=== PATIENT | male | born 1950 | race Caucasian/White ===

== ENCOUNTER → 2018-03-02 11:36 | Emergency (ER) | payer MEDICARE ==
[~2018-03-02 11:36] MED LIST: HYDROcodone/ACETAMIN 5-325 MG* 1 TAB PO ONE
--- NOTE | 2018-03-02 12:40 | RAD ---
HISTORY: fall COMPARISONS: None VIEWS: 3 , Frontal view of the pelvis with frontal and frog-leg views of the right hip FINDINGS: BONE DENSITY: Normal. BONES: There is no displaced fracture. JOINTS: There is mild osteoarthritis of the right hip with moderate osteoarthritis of the left hip. ALIGNMENT: There is no dislocation. SOFT TISSUES: Unremarkable. OTHER FINDINGS: Degenerative changes are noted of the spine.. IMPRESSION: OSTEOARTHRITIS. NO RADIOGRAPHIC EVIDENCE FOR HIP FRACTURE. X-RAYS MAY BE NEGATIVE WITH NONDISPLACED HIP FRACTURE, IF THERE IS PERSISTENT CLINICAL CONCERN, RECOMMEND CONSIDERATION OF MRI. IN THE SETTING OF CONTRAINDICATION TO MRI OR LIMITATION IN EMERGENT ACCESS TO MRI, CT WOULD BE SUGGESTED. .
--- NOTE | 2018-03-02 14:18 | RAD ---
HISTORY: fall, pain, right hip pain COMPARISONS: Plain film dated March 02, 2018 TECHNIQUE: Multiple contiguous axial CT images are obtained of the pelvis , with coronal and sagittal multiplanar reconstructions, without intravenous contrast administration. FINDINGS: BONE DENSITY: There is diffuse osteopenia. BONES: There is no displaced fracture. JOINTS: There is moderate osteoarthritis of the right hip with advanced osteoarthritis of the left hip. There is mild osteoarthritis of the SI joints. MUSCULATURE: Unremarkable ALIGNMENT: There is no dislocation. SOFT TISSUES: Unremarkable. OTHER FINDINGS: There is degenerative disc disease and osteoarthritis of the lower lumbar spine. IMPRESSION: 1. OSTEOPENIA. 2. OSTEOARTHRITIS. 3. NO ACUTE OSSEOUS INJURY TO THE VISUALIZED PORTION OF THE PELVIS. IF SYMPTOMS PERSIST, RECOMMEND REPEAT IMAGING
[2018-03-02 15:03] VITALS: BP 137/74
--- NOTE | 2018-03-02 18:09 | ED ---
Lower Extremity - HPI Summary HPI Summary: Pt. is a 67 y.o male who presents to the ER for right hip pain x 4 days. Pt. states he has chronic right knee pain after 2 surgeries and it occasionally makes him fall. Pt. states four days ago his knee gave out and he slipped in the shower injuring his right knee. No other injuries were sustained. Pt. states hip pain has persisted and he is having trouble walking secondary to pain. Denies back or new numbness/tingling/weakness in legs. He is rx lortab by PCP. Symptoms are mild in severity. Walking makes sxs worse. Nothing makes sx better. - History of Current Complaint Chief Complaint: EDExtremityLower Stated Complaint: RT SIDE HIP INJURY Time Seen by Provider: 03/02/18 12:08 Hx Obtained From: Patient Pain Intensity: 3 Pain Scale Used: 0-10 Numeric - Allergies/Home Medications Allergies/Adverse Reactions: Allergies Allergy/AdvReac Type Severity Reaction Status Date / Time NSAIDS (Non-Steroidal Allergy GI Upset Verified 03/02/18 11:48 Anti-Inflamma PMH/Surg Hx/FS Hx/Imm Hx Previously Healthy: Yes Endocrine/Hematology History: Denies: Hx Anticoagulant Therapy GI History: Reports: Hx Gastroesophageal Reflux Disease Denies: Hx Cirrhosis, Hx Crohn's Disease, Hx Diverticulosis, Hx Gall Bladder Disease, Hx Gastrointestinal Bleed, Hx Hiatal Hernia, Hx Irritable Bowel, Hx Jaundice, Hx Obstructive Bowel, Hx Ileostomy, Hx Pyloric Stenosis, Hx Ulcer, Other GI Disorders Musculoskeletal History: Reports: Hx Arthritis - Right knee, Hx Orthopedic Injury - Bilateral shoulders Sensory History: Reports: Hx Contacts or Glasses - Reading Denies: Hx Cataracts, Hx Eye Prosthesis, Hx Deafness, Hx Hearing Aid, Hx Hearing Problem Opthamlomology History: Reports: Hx Contacts or Glasses - Reading Denies: Hx Cataracts, Hx Eye Prosthesis Psychiatric History: Reports: Hx Depression, Hx Substance Abuse Denies: Hx Anxiety, Hx Attention Deficit Hyperactivity Disorder, Hx Eating Disorder, Hx Panic Disorder, Hx Post Traumatic Stress Disorder, Hx Inpatient Treatment, Hx Community Mental Health Tx, Hx Schizophrenia, Hx Bipolar Disorder , Hx Suicide Attempt, Hx of Violent Episodes Against Others, Other Psychiatric Issues/Disorders - Surgical History Surgery Procedure, Year, and Place: Right knee replacement, bilateral rotator cuff tears Infectious Disease History: No Infectious Disease History: Denies: Hx Clostridium Difficile, Hx Hepatitis, Hx Human Immunodeficiency Virus (HIV), Hx of Known/Suspected MRSA, Hx Shingles, Hx Tuberculosis, Hx Known/ Suspected VRE, Hx Known/Suspected VRSA, History Other Infectious Disease, Traveled Outside the [place] in Last 30 Days - Family History Known Family History: Positive: Other - noncontributory - Social History Occupation: Retired Lives: With Family Alcohol Use: Daily Alcohol Amount: 6-8 Substance Use Type: Reports: None Substance Use Comment - Amount & Last Used: History of cocaine use. Smoking Status (MU): Light Every Day Tobacco Smoker Type: Cigarettes Review of Systems Positive: Other - right hip pain Skin: Negative Neurological: Negative All Other Systems Reviewed And Are Negative: Yes Physical Exam Triage Information Reviewed: Yes Vital Signs On Initial Exam: Initial Vitals Temp Pulse Resp BP Pulse Ox 98.2 F 74 17 127/67 97 03/02/18 11:44 03/02/18 11:44 03/02/18 11:44 03/02/18 11:44 03/02/18 11:44 Vital Signs Reviewed: Yes Appearance: Positive: Thin - Pt. lying on bed, appears uncomfortable but nontoxic. present. Skin: Positive: Warm, Dry Head/Face: Positive: Normal Head/Face Inspection Eyes: Positive: Normal, EOMI Neck: Positive: Supple Musculoskeletal: Positive: Other - Right leg is neurovascularly intact. Pain over right illiac crest. Mild pain with rotation of right hip. No leg edema, erythema, calf pain. Neurological: Positive: Normal, CN Intact II-III Psychiatric: Positive: Affect/Mood Appropriate Diagnostics - Vital Signs Vital Signs Temp Pulse Resp BP Pulse Ox 03/02/18 15:02 98.3 F 81 16 137/74 99 03/02/18 11:44 98.2 F 74 17 127/67 97 - Laboratory Lab Statement: Any lab studies that have been ordered have been reviewed, and results considered in the medical decision making process. Lower Extremity Course/Dx - Course Course Of Treatment: Presenting with right flank pain after fall 4 days ago. He was given a dose of Lortab for pain. X-rays show arthritic changes without definitive fracture, reading per radiology. Results were discussed with patient. Patient states that he has really been unable to bear weight on his right leg secondary to headache pain has been using a walker at home. Given recent fall and inability to bear weight CT scan was ordered to rule out occult fracture. CT scan shows arthritic changes without acute fracture, reading per radiology. Results discussed with patient. We'll have him follow-up with his orthopedic surgeon. Advised to call his family doctor today for refill of his chronic pain medications. To return to the ER if symptoms change or worsen. Patient understands and agrees with plan. - Diagnoses Differential Diagnosis/HQI/PQRI: Positive: Arthritis, Contusion, Fracture ( Closed), Sprain, Strain Provider Diagnoses: Hip sprain Discharge - Sign-Out/Discharge Documenting (check all that apply): Patient Departure - Discharge Plan Condition: Good Disposition: HOME Patient Education Materials: Hip Pain (ED) Referrals: Melo Bustillos MD [Primary Care Provider] - Additional Instructions: Schedule a follow up appointment with your orthopedic doctor Return to ER if symptoms change or worsen - Billing Disposition and Condition Condition: GOOD Disposition: Home
== END | disposition home or self-care (01) ==
LOC: ED 11:36
DX: S73.101A Unspecified sprain of right hip, initial encounter (principal); M25.561 Pain in right knee; G89.29 Other chronic pain; K21.9 Gastro-esophageal reflux disease without esophagitis; F17.210 Nicotine dependence, cigarettes, uncomplicated; W18.2XXA Fall in (into) shower or empty bathtub, initial encounter; Y92.9 Unspecified place or not applicable
CPT/HCPCS: 72192; 99282

== ENCOUNTER 2019-04-11 19:06 | Emergency (ER) | payer MEDICARE ==
[~2019-04-11 19:06] MED LIST changes: +EPINEPHrine SYR 0.1MG/ML* SYRINGE ONE; -HYDROcodone/ACETAMIN 5-325 MG* 1 TAB PO ONE; +Naloxone Nasal Spray* 4 MG/0.1 ML NASAL.SPR INTRANASAL ONE; +Sodium Bicarbonate 8.4%* 50 ML SYRINGE ONE
--- NOTE | 2019-04-11 19:22 | ED ---
Cardiac Resuscitation - HPI Summary HPI Summary: Patient is a 68 y/o M presenting to the ED via EMS for a chief complaint of cardiac arrest. Patient is unconscious and unresponsive. Per EMS, ambulatory services were called at 18:07 and on the scene, patient was in asystole and given 4 rounds of epinephrine and calcium. At that time, patient's HR was 67 BPM and was intubated. Patient has blood from the nares and mouth. The last epinephrine was administered 5 minutes CARDIOVASCULAR SURGICAL TECH at [facility]. Patient was given CPR by EMS due to having no shockable rhythm. No narcan was administered by EMS. Patient has a PMHx of COPD and hepatitis C. Patient previously took oxycodone for pain. Several pulse checks assessed in the room showed no pulse. Continuous CPR was given to the patient on arrival to [facility]. Patient's and son later arrived to [facility]. - History of Current Complaint Stated Complaint: ABC ALERT PER EMS Hx Obtained From: Family/Engineering Mgr - and son, EMS Hx From Patient Unobtainable Due To: Extremis Onset/Duration: Minutes/Hours: - 16:07 by EMS unresponsive Arrest Witnessed: Yes Down-time Before Basic Life Support Initiated: Down-time before BLS initiated: - Minimal Down-time Before Advanced Life Support Initiated: Down-time before ALS initiated : - Unknown Was AED Placed on Patient: Yes AED Placed on Patient By: EMS Did AED Recommend Defibrillation: No Was Defibrillating Shock Administered: No - Allergies/Home Medications Allergies/Adverse Reactions: Allergies Allergy/AdvReac Type Severity Reaction Status Date / Time NSAIDS (Non-Steroidal Allergy GI Upset Verified 03/02/18 11:48 Anti-Inflamma Home Medications: Home Medications Doxepin (NF) 25 - 50 mg PO BEDTIME 04/11/19 [History Confirmed 04/11/19] Zolpidem TAB* [Ambien TAB*] 10 mg PO BEDTIME PRN 04/11/19 [History Confirmed ] oxyCODONE TAB* [Roxycodone TAB 5 mg*] 10 mg PO .Q6-8H PRN MDD 4 04/11/19 [ History Confirmed 04/11/19] - Past Medical History Past Medical History: COPD, Other: - Hepatitis C - Family History Family History: Unobtainable Due to Extremis - Social History Social History: Unobtainable Due to Extremis - Review of Systems Review of Systems: Unobtainable Due to Extremis Physical Examination - Summary Physical Exam Summary: Constitutional: Combitube in place with blood in the oropharynx. CPR in progress Skin: Warm, Dry HENT: Normocephalic; Atraumatic Eyes: Conjunctiva normal. Pupils 3 mm and equal Neck: Musculoskeletal ROM normal neck. (-) JVD, (-) Stridor, (-) Tracheal deviation Cardio: CPR in progress with PEA on the monitor. Pulmonary/Chest wall: Patient easily bagged via Combitube with bilateral breath sounds Abd: No distention Musculoskeletal: (-) Edema Neuro: No spontaneous movement - Physical Examination Triage Information Reviewed: Yes Completion Of Physical Exam Limited Due To: Extremis Resuscitation Termination Time: 19:18 Resuscitation: Unsuccessful Procedures - Sedation Patient Received Moderate/Deep Sedation with Procedure: No Re-Evaluation - Re-Evaluation First Eval Re-Evaluation Time: 19:25 Change: Unchanged Comment: AT 19:25, CONTACT CENTER REPRESENTATIVE WILL NOT DO AN AUTOPSY. Cardiac Resus. Course/Dx - Course Course Of Treatment: Patient was brought in via EMS in cardiac arrest. Patient had a witnessed arrest at home with bystander CPR performed by his . Upon arrival, patient was in asystole with EMS. Patient sees multiple rounds of epinephrine with eventual PEA arrest and then a ventricular tachycardia. Patient had pulses at that time, was given amiodarone and patient went back into PEA arrest. Upon arrival here, patient had a Combitube in place and was easily being bagged. Patient had bilateral breath sounds with no crepitus in his chest wall. Patient had no signs of trauma. Patient was placed on our monitors and was found to be in asystole. Patient received multiple rounds of epinephrine. Patient does take opiates at home so Narcan was given with no response. Patient was also given a dose of bicarbonate with no response. CPR was performed with at bedside. Patient had no cardiac activity on bedside ultrasound. Patient's time of was 1917. The medical territory manager was called and they recommended no autopsy which is what family wanted. - Diagnoses Provider Diagnoses: Cardiac arrest, Respiratory failure During the Visit The Following Alert/Code Occurred: ABC Alert - ABC ALERT ETA IN 6 MINUTES AT 15:56. FIRST EPINEPHRINE AT 19:09. SECOND EPINEPHRINE AT 19:16. TIME OF : 19:18. Discharge ED - Sign-Out/Discharge Documenting (check all that apply): Patient Departure - - Discharge Plan Condition: Disposition: Referrals: Melo Bustillos MD [Primary Care Provider] - - Billing Disposition and Condition Condition: Disposition: - Attestation Statements Document Initiated by Scribe: Yes Documenting Scribe: Amanda Chaves Provider For Whom Scribe is Documenting (Include Credential): Alessio Lind MD Scribe Attestation: Amanda Taveras, scribed for Alessio Lind MD on 04/11/19 at 2137. Scribe Documentation Reviewed: Yes Provider Attestation: The documentation as recorded by the Amanda coleman accurately reflects the service I personally performed and the decisions made by Alessio santamaria MD Status of Scribe Document: Viewed
[2019-04-11 19:29] VITALS: BP 0/0
--- OUTSIDE RECORDS SUMMARY | 2019-04-11 19:30 | XMS REPORT | Continuity of Care Document ---
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 [phone] Medicine Problems Description No Information Available Social History Type Date Description Comments Sex Unknown ETOH Use Rarely consumes alcohol Tobacco Use Start: Unknown End: Unknown Patient is a former smoker Recreational Drug Use Denies Drug Use Smoking Status Reviewed: 02/22/19 Patient is a former smoker Allergies, Adverse Reactions, Alerts Active Allergies Reaction Severity Comments Date NSAIDS GI upset 06/12/2018 Medications Active Medications SIG Qnty Indications Ordering Provider Date Oxycodone HCL si by mouth 100tabs Benoit Han DO, 06/12/2018 10mg every 6 to 8 MPH Tablets hours as directed chronic pain patient Vitamin C 1 by mouth every Unknown 1000mg day Tablets Medical Marijuana Vireo Red Oil Unknown CBD/Cap Ambien si by mouth Unknown 10mg Tablets every night at bedtime as directed Allergy 1 by mouth as Unknown 25mg Capsules needed Immunizations Description No Information Available Vital Signs Date Vital Result Comment 02/22/2019 3:37pm BP Systolic 136 mmHg BP Diastolic 86 mmHg Heart Rate 88 /min Respiratory Rate 20 /min Height 67 inches 5'7" Weight 141.00 lb Pain Level 7 Pain at this time. Pain Level With Medicine 6 on average with meds Pain Level Without Medicine 9 without meds BMI (Body Mass Index) 22.1 kg/m2 01/23/2019 2:54pm BP Systolic 128 mmHg BP Diastolic 84 mmHg Heart Rate 88 /min Respiratory Rate 20 /min Height 67 inches 5'7" Weight 144.00 lb Pain Level 5 Pain at this time. Pain Level With Medicine 5 on average with meds Pain Level Without Medicine 9 without meds BMI (Body Mass Index) 22.6 kg/m2 Results Description No Information Available Procedures Date Code Description Status 09/21/2018 23678 Omt 3-4 Body Regions Completed Medical Devices Description No Information Available Encounters Type Date Location Provider Dx Diagnosis Office Visit 01/23/2019 Main Office as Of Benoit Han DO G89.29 Other chronic pain 2:45p 06/23/13 MPH M54.2 Cervicalgia Z79.891 skilled nursing (current) use of opiate analgesic Office Visit 12/26/2018 3:00p Main Office as Benoit Han G89.29 Other chronic Of 06/23/13 DO, MPH pain M54.2 Cervicalgia Z79.891 skilled nursing (current) use of opiate analgesic Office Visit 12/22/2018 1:45p Main Office as Benoit Han G89.29 Other chronic Of 06/23/13 DO, MPH pain M54.2 Cervicalgia M54.5 Low back pain M54.6 Pain in thoracic spine Office Visit 11/22/2018 11:15a Main Office as Benoit Han G89.29 Other chronic Of 06/23/13 DO, MPH pain M54.2 Cervicalgia M54.5 Low back pain M54.6 Pain in thoracic spine Z79.891 skilled nursing (current) use of opiate analgesic Office Visit 10/24/2018 11:00a Main Office as Benoit Han G89.29 Other chronic Of 06/23/13 DO, MPH pain M54.2 Cervicalgia M54.6 Pain in thoracic spine M54.5 Low back pain Z79.891 skilled nursing (current) use of opiate analgesic Office Visit 09/21/2018 11:30a Main Office as Benoit Han G89.29 Other chronic Of 06/23/13 DO, MPH pain M54.2 Cervicalgia M99.01 Segmental and somatic dysfunction of cervical region M54.6 Pain in thoracic spine M99.02 Segmental and somatic dysfunction of thoracic region M54.5 Low back pain M99.03 Segmental and somatic dysfunction of lumbar region M25.561 Pain in right knee 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 Assessments Date Code Description Provider 02/22/2019 G89.29 Other chronic pain Han, Benoit, DO, MPH 02/22/2019 M54.2 Cervicalgia Han, Benoit, DO, MPH 02/22/2019 M54.5 Low back pain Han, Benoit, DO, MPH 02/22/2019 Z71.89 Other specified counseling Han, Benoit, DO, MPH 02/22/2019 Z79.891 skilled nursing (current) use of opiate analgesic Han, Benoit , DO, MPH 01/23/2019 G89.29 Other chronic pain Han, Benoit, DO, MPH 01/23/2019 M54.2 Cervicalgia Han, Benoit, DO, MPH 01/23/2019 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 Han, Benoit , DO, MPH 12/26/2018 G89.29 Other chronic pain Han, Benoit, DO, MPH 12/26/2018 M54.2 Cervicalgia Han, Benoit, DO, MPH 12/26/2018 Z79.891 skilled nursing (current) use of opiate analgesic Han, Benoit , DO, MPH 12/22/2018 G89.29 Other chronic pain Han, Benoit, DO, MPH 12/22/2018 M54.2 Cervicalgia Han, Benoit, DO, MPH 12/22/2018 M54.5 Low back pain Han, Benoit, DO, MPH 12/22/2018 M54.6 Pain in thoracic spine Han, Benoit, DO, MPH 11/22/2018 G89.29 Other chronic pain Han, Benoit, DO, MPH 11/22/2018 M54.2 Cervicalgia Han, Benoit, DO, MPH 11/22/2018 M54.5 Low back pain Han, Benoit, DO, MPH 11/22/2018 M54.6 Pain in thoracic spine Han, Benoit, DO, MPH 11/22/2018 Z79.891 skilled nursing (current) use of opiate analgesic Han, Benoit , DO, MPH 10/24/2018 G89.29 Other chronic pain Han, Benoit, DO, MPH 10/24/2018 M54.2 Cervicalgia Benoit Han DO, MPH 10/24/2018 M54.6 Pain in thoracic spine Benoit Han DO, MPH 10/24/2018 M54.5 Low back pain Benoit Han DO, MPH 10/24/2018 Z79.891 skilled nursing (current) use of opiate analgesic Benoit Han DO, MPH 09/21/2018 G89.29 Other chronic pain Benoit Han DO, MPH 09/21/2018 M54.2 Cervicalgia Benoit Han DO, MPH 09/21/2018 M99.01 Segmental and somatic dysfunction of Benoit Han DO, MPH cervical region 09/21/2018 M54.6 Pain in thoracic spine Benoit Han DO, MPH 09/21/2018 M99.02 Segmental and somatic dysfunction of Benoit Han DO, MPH thoracic region 09/21/2018 M54.5 Low back pain Benoit Han DO, MPH 09/21/2018 M99.03 Segmental and somatic dysfunction of lumbar Benoit Han DO, MPH region 09/21/2018 M25.561 Pain in right knee Benoti Han DO, MPH 09/21/2018 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 Symptoms and complaints discussed and reviewed today. No significant changes in physical findings. Continue current medical pain management.M54.2 CervicalgiaComments:Chronic. Symptoms and complaints discussed and reviewed today. No significant changes in physical findings. Continue current medical pain management.M54.5 Low back painComments:Chronic. Symptoms and complaints discussed and reviewed today.No changes in physical findings. Patient is stable and comfortable when current medical therapy is rendered.Z71.89 Other specified counselingComments:CAGE reviewed with patient. Counseled not to drive or use opioids while drinking. The patient clearly understands and agrees. No intervention necessary at this time. Will continue to monitor ETOH in UDT's. He denies being a diabetic. He states that he may have had a few beers a couple days prior to coming in for his appointment but he does not remember. He has a faint odor of alcohol but nothing that suggests that he is drunk at the appointment today. Phone conversation reviewed with patient today in the room. Conversation reviewed about him going to [facility] about his last UDT. The patient's alcohol in his UDT was above 100,000 ng/mL and 40,000 ng/ml. He continues to deny drinking anything. Patient's primary care notified of the UDT as well. [facility] called and spoke to Ailyn kumar [place] (Dr. Bustillos's office). She is requesting that today' s note and the UDT be faxed to their office for review and to start the referral process to the [facility]. 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 A urine drug test (UDT) was ordered for this patient and collected on site today. Creatinine has been ordered as well for specimen validity, not for kidney function. Preliminary UDT results are not final and should not be used to determine patient care or plan of treatment. Initially a qualitative immunoassay screen will be done. Any inconsistent or positive findings will be further tested with a more comprehensive quantitative confirmation LCMS study. It is part of the treatment process of prescribing controlled substances and is considered standard of care.AllComments:Continue current medical pain management; injection therapy, osteopathic manipulation, PT / modalities, and consults as needed to manage chronic pain.Non - opioid pain management discussed and optionsdiscussed.Side effects discussed; anticipatory guidance given. Patient clearly understand and agree with all medical treatments and suggestions. All medicines prescribed are adequate and appropriate for this patient's complaint of pain, medical history, physical, and personal goals.Goals of Treatment are to provide adequate and appropriate multidisciplinary medical pain management to increase/ maintain patient's quality of life and functionality while maintaining satisfactory side effect profile andminimizing middle or intermediate school principal end-organ damage. Importance of regular nutrition throughout the day discussed.Activity as toleratedContinue with PCP Functional Status Description No Information Available Mental Status Description No Information Available Referrals Description No Information Available
--- OUTSIDE RECORDS SUMMARY | 2019-04-11 19:30 | XMS REPORT | Continuity of Care Document ---
:1950 External Reference #:[id number] Author Name Benoit Han DO, MPH Address [address] [place] [address], [address] [place] [address] Care Team Providers Name Role Phone Melo Bustillos MD - Internal Care Team Information Legislators [phone] Medicine Problems Description No Information Available Social History Type Date Description Comments Sex Unknown ETOH Use Rarely consumes alcohol Tobacco Use Start: Unknown End: Unknown Patient is a former smoker Recreational Drug Use Denies Drug Use Smoking Status Reviewed: 03/26/19 Patient is a former smoker Allergies, Adverse [...] Available Vital Signs Date Vital Result Comment 03/26/2019 1:35pm BP Systolic 122 mmHg BP Diastolic 74 mmHg Heart Rate 76 /min Respiratory Rate 20 /min Height 67 inches 5'7" Weight 135.00 lb Pain Level 9 Pain at this time. Pain Level With Medicine 8 on average with meds Pain Level Without Medicine 9 without meds BMI (Body Mass Index) 21.1 kg/m2 03/06/2019 3:49pm BP Systolic 130 mmHg BP Diastolic 82 mmHg Heart Rate 84 /min Respiratory Rate 20 /min Height 67 inches 5'7" Weight 136.00 lb Pain Level 6 Pain at this time. Pain Level With Medicine 6 on average with meds Pain Level Without Medicine 9 without meds BMI (Body Mass Index) 21.3 kg/m2 Results Description No Information Available Procedures Description No Information Available Medical Devices Description No Information Available Encounters Type Date Location Provider Dx Diagnosis Office Visit 03/06/2019 Main Office as Of Benoit Han DO, G89.29 Other chronic pain 3:30p 06/23/13 MPH M54.5 Low back pain M54.2 Cervicalgia M25.561 Pain in right knee Z79.891 [facility] (current) use of opiate analgesic Office Visit 02/22/2019 2:30p Main Office as Benoit Han G89.29 Other chronic Of 06/23/13 DO, MPH pain M54.2 Cervicalgia M54.5 Low back pain Z71.89 Other specified counseling Z79.891 [employer] (current) use of opiate analgesic Office Visit 01/23/2019 2:45p Main Office as Benoit Han G89.29 Other chronic Of 06/23/13 DO, MPH pain M54.2 Cervicalgia Z79.891 [facility] [employer] (current) use of opiate analgesic Office Visit 12/26/2018 3:00p Main Office as Benoit Han G89.29 Other chronic Of 06/23/13 DO, MPH pain M54.2 Cervicalgia Z79.891 [facility] [employer] (current) use of opiate analgesic Office Visit 12/22/2018 1:45p Main Office as Benoit Han G89.29 Other chronic Of 06/23/13 DO, MPH pain M54.2 Cervicalgia M54.5 Low back pain M54.6 Pain in thoracic spine Office Visit 11/22/2018 11:15a Main Office as Benoit Han G89.29 Other chronic Of 06/23/13 DO, MPH pain M54.2 Cervicalgia M54.5 Low back pain M54.6 Pain in thoracic spine Z79.891 [facility] (current) use of opiate analgesic Office Visit 10/24/2018 11:00a Main Office as Benoit Han G89.29 Other chronic Of 06/23/13 DO, MPH pain M54.2 Cervicalgia M54.6 Pain in thoracic spine M54.5 Low back pain Z79.891 [employer] (current) use of opiate analgesic Assessments Date Code Description Provider 03/26/2019 G89.29 Other chronic pain Han, Benoit, DO, MPH 03/26/2019 M54.5 Low back pain Han, Benoit, DO, MPH 03/26/2019 M54.2 Cervicalgia Han, Benoit, DO, MPH 03/26/2019 M25.561 Pain in right knee Han, Benoit, DO, MPH 03/26/2019 Z79.891 [employer] [employer] (current) use of opiate analgesic Han, Benoit , DO, MPH 03/06/2019 G89.29 Other chronic pain Han, Benoit, DO, MPH 03/06/2019 M54.5 Low back pain Han, Benoit, DO, MPH 03/06/2019 M54.2 Cervicalgia Han, Benoit, DO, MPH 03/06/2019 M25.561 Pain in right knee Han, Benoit, DO, MPH 03/06/2019 Z79.891 [facility] (current) use of opiate analgesic Han, Benoit , DO, MPH 02/22/2019 G89.29 Other chronic pain Han, Benoit, DO, MPH 02/22/2019 M54.2 Cervicalgia Han, Benoit, DO, MPH 02/22/2019 M54.5 Low back pain Han, Benoit, DO, MPH 02/22/2019 Z71.89 Other specified counseling Han, Benoit, DO, MPH 02/22/2019 Z79.891 [facility] (current) use of opiate analgesic Han, Benoit , DO, MPH 01/23/2019 G89.29 Other chronic pain Han, Benoit, DO, MPH 01/23/2019 M54.2 Cervicalgia Han, Benoit, DO, MPH 01/23/2019 Z79.891 [facility] [employer] (current) use of opiate analgesic Han, Benoit , DO, MPH 12/26/2018 G89.29 Other chronic pain Han, Benoit, DO, MPH 12/26/2018 M54.2 Cervicalgia Han, Benoit, DO, MPH 12/26/2018 Z79.891 [employer] [employer] (current) use of opiate analgesic HanRadha morenoph DO, MPH 12/22/2018 G89.29 Other chronic pain HanBenoit moreno DO, MPH 12/22/2018 M54.2 Cervicalgia Han, Benoit DO, MPH 12/22/2018 M54.5 Low back pain HanBenoit moreno DO, MPH 12/22/2018 M54.6 Pain in thoracic spine HanBenoit moreno DO, MPH 11/22/2018 G89.29 Other chronic pain Han, Benoit DO, MPH 11/22/2018 M54.2 Cervicalgia Han, Benoit DO, MPH 11/22/2018 M54.5 Low back pain HanBenoit moreno DO, MPH 11/22/2018 M54.6 Pain in thoracic spine HanBenoit moreno DO, MPH 11/22/2018 Z79.891 [employer] [employer] (current) use of opiate analgesic Benoit Han DO, MPH 10/24/2018 G89.29 Other chronic pain HanBenoit moreno DO, MPH 10/24/2018 M54.2 Cervicalgia HanBenoit moreno DO, MPH 10/24/2018 M54.6 Pain in thoracic spine HanBenoit moreno DO, MPH 10/24/2018 M54.5 Low back pain HanBenoit moreno DO, MPH 10/24/2018 Z79.891 [facility] (current) use of opiate analgesic Benoit Han DO, MPH Plan of Treatment Future Appointment(s):04/24/2019 3:15 pm - Benoit Han DO, MPH at Main Office as Of 06/23/1410 - Benoit Han DO, MPHG89.29 Other chronic painComments:Chronic. Symptoms and complaints discussed and reviewed today. No significant changes in physical findings. Continue current medical pain management.M54.5 Low back painComments:Chronic. Symptoms and complaints discussed and reviewed today.No changes in physical findings. Patient is stable and comfortable when current medical therapy is rendered.M54.2 CervicalgiaComments:Chronic. Symptoms and complaints discussed and reviewed today. No significant changes in physical findings. Continue current medical pain management.M25.561 Pain in right kneeComments:Chronic.Symptoms and complaints discussed and reviewed today. No significant changes in physical findings. Continue current medical pain management.Z79.891 [employer] (current) use of opiate analgesicNew Labs:Urine Drug Screen, Ordered: 03/26/19Comments: Urine drug screen sample taken today to monitor opiate use and to monitor use of illicit substances.Will discuss results at next appointment.The following tests were ordered:6 AM, AMPH, ROSALBA, YUMI, BUP, CARIS, COCM, ETG, FENT, MCSHSG, OPI, OXY, PCP, TAPEN, XTSY, ZOLP. A urine drug test (UDT) was ordered for this patient and collected on site today. Creatinine has been ordered as well for specimen validity, not for kidney function. Preliminary UDT results are not final and should not be used to determine patient care or plan of treatment. Initially a qualitative immunoassay screen will bedone. Any inconsistent or positive findings will be [...] while maintaining satisfactory side effect profile andminimizing manager terminal end-organ damage. Importance of regular nutrition throughout the day discussed.Activity as toleratedContinue with PCP Functional Status Description No Information Available Mental Status Description No Information Available Referrals Description No Information Available
--- OUTSIDE RECORDS SUMMARY | 2019-04-11 19:30 | XMS REPORT | Summary of Care ---
:1950 Author Organization [facility] Address [address] [facility] [place] [address] Care Team Providers Name Role Phone Melo Bustillos Primary Care Provider Reason for Referral Specialty Consult (Routine) Status Reason Specialty Diagnoses / Referred By Referred To Procedures Contact Contact Authorized Diagnoses Alcohol abuse, episodic drinking behavior Khushi Fox FNP [address] [place] [address] Reason for Visit Reason Comments Medication Check montly FU, having trouble sleeping even w/meds and when he does, he wakes up early. Traveling on a plane to [facility] in [place] and needs medication for clostrofobia Encounter Details Date Type Department Care Team Description 03/22/2019 Office Visit [facility] Khushi Fox, Anxiety state ( Primary Dx); Practice [facility] [facility] Alcohol abuse, episodic drinking behavior; [address] [facility] Chronic hepatitis C without hepatic coma (HCC) [place] [address] [place] [address] [phone] Allergies Active Allergy Reactions Severity Noted Date Comments Nsaids GI Reaction Medium 07/06/2007 Gastro-intestinal upset documented as of this encounter (statuses as of 03/22/2019) Medications Medication Sig Dispensed Refills Start Date End Date Status daily vitamin Oral Tab Take 1 Tab by 0 Active mouth DAILY. Cholecalciferol (VITAMIN Take 1 Cap by 30 Cap 5 01/08/2011 Active D) 1000 UNIT Oral mouth DAILY. CapIndications: Routine general medical examination at a health care facility OXYcodone-acetaminophen Take 1 Tab by 0 Active discharge (PERCOCET) mouth EVERY SIX 10-325 MG Oral HOURS NEEDED. TabIndications: Pain Indications: Pain zolpidem (AMBIEN) 10 MG Take 1 Tab by 30 Tab 5 12/19/2018 Active Oral TabIndications: mouth EVERY Other insomnia BEDTIME NEEDED (sleep). Max Daily Amount: 10 mg. cimetidine (TAGAMET) 400 Take 400 mg by 60 Tab 5 12/19/2018 Active MG Oral Tab mouth TWO TIMES DAILY NEEDED (gerd). doxepin (SINEQUAN) 25 MG Take 1-2 Caps by 60 Cap 2 03/20/2019 Active Oral CapIndications: mouth EVERY Other insomnia BEDTIME. diazepam (VALIUM) 5 MG Take 1-2 Tabs by 8 Tab 0 03/22/2019 Active Oral TabIndications: mouth TWO TIMES Anxiety state DAILY NEEDED (flight anxiety). Max Daily Amount: 20 mg. documented as of this encounter (statuses as of 03/22/2019) Active Problems Problem Noted Date Recurrent major depressive disorder, in partial remission 09/07/2018 Medical marijuana use 06/15/2018 Chronic pain syndrome 01/09/2018 Overview: [facility] Failed total knee arthroplasty 02/07/2017 Chronic hepatitis C without hepatic coma 03/14/2015 Osteoarthritis of shoulder due to rotator cuff injury 06/09/2011 S/P revision of total knee, right 01/19/2011 Overview: Replaced inactive diagnosis Essential hypertension, benign 01/08/2011 Narcotic dependency, continuous 02/06/2009 Overview: duragesic patch therapy stopped 2008 Family history of colon cancer 02/06/2009 Overview: Colonoscopy negative 2001 and 2006. History of tobacco use 05/09/2007 Overview: Quit 1970. Chronic shoulder pain 05/09/2007 Overview: Bilateral, s/p surgery x2 right shoulder last 1994 and x1 on left shoulder late -rotator cuff repair documented as of this encounter (statuses as of 03/22/2019) Resolved Problems Problem Noted Date Resolved Date Severe episode of recurrent major depressive disorder, 06/15/2018 06/15/2018 without psychotic features Esophageal reflux 05/09/2007 10/19/2018 Osteoarthritis of right knee 05/09/2007 09/07/2018 Allergic rhinitis, cause unspecified 05/09/2007 07/10/2007 Hematuria, Unspecified 01/08/2005 07/10/2007 documented as of this encounter (statuses as of 03/22/2019) Immunizations Name Administration Dates Next Due Celestone Soluspan(12mg) 12/25/2009 Pneumococcal Conjugate(13 Valent) 06/15/2018 documented as of this encounter Social History Tobacco Use Types Packs/Day Years Used Date Former Smoker Cigarettes 0 Quit: 05/23/2007 Smokeless Tobacco: Never Used Alcohol Use Drinks/Week oz/Week Comments No 0 Standard drinks or equivalent 0.0 Physical Activity Answer Date Recorded On average, how many days per week do you engage in moderate to 0 days 2018 strenuous exercise (like walking fast, running, jogging, dancing, swimming, biking, or other activities that cause a light or heavy sweat)? On average, how many minutes do you engage in exercise at this 0 min 2018 level? Stress Answer Date Recorded Do you feel stress - tense, restless, nervous, or anxious, or Very much 03/22 unable to sleep at night because your mind is troubled all the time - these days? Financial Resource Strain Answer Date Recorded How hard is it for you to pay for the very basics like Not hard at all 2018 food, housing, medical care, and heating? Food Insecurity Answer Date Recorded Within the past 12 months, you worried that your food would Never true 2018 run out before you got money to buy more. Within the past 12 months, the food you bought just didn't Never true 2018 last and you didn't have money to get more. Transportation Needs Answer Date Recorded In the past 12 months, has lack of transportation kept you from No 03/22/2019 medical appointments or from getting medications? In the past 12 months, has lack of transportation kept you from No 03/22/2019 meetings, work, or getting things needed for daily living? Sex Assigned at Date Recorded Not on file Job Start Date Occupation Industry Not on file Not on file Not on file Travel History Travel Start Travel End No recent travel history available. documented as of this encounter Last Filed Vital Signs Vital Sign Reading Time Taken Comments Blood Pressure 132/82 03/22/2019 2:32 PM EDT Pulse 101 03/22/2019 2:32 PM EDT Temperature - - Respiratory Rate - - Oxygen Saturation 95% 03/22/2019 2:32 PM EDT Inhaled Oxygen Concentration - - Weight 62.1 kg (137 lb) 03/22/2019 2:32 PM EDT Height 170.2 cm (5' 7") 03/22/2019 2:32 PM EDT Body Mass Index 21.46 03/22/2019 2:32 PM EDT documented in this encounter Patient Instructions Patient InstructionsKhushi Fox FNP - 03/22/2019 2:20 PM EDTBlood test today Follow up Dr Han Can use valium if needed for upcoming air travel anxiety. Do No drink alcohol Consider going to [facility]. documented in this encounter Progress Notes Khushi Fox FNP - 03/22/2019 2:20 PM EDT PATIENT: Shailesh Balderas : 1950 DATE OF SERVICE: 03/22/2019 Chief Complaint Patient presents with Medication Check carlos KENYON, having trouble sleeping even w/meds and when he does, he wakes up early. Traveling on aplane to [facility] in [place] and needs medication for clostrofobia SUBJECTIVE: Shailesh Balderas is a 68-y.o. male who is here for routine visit. He had urine drug screen at Dr Han about a month ago and results showing metabolites of ethanol. He states he has just a couple beer a week. There is a history of heavy alcohol abuse. He was advised to go to [facility]. He does not recall that message to him. He will be seeing Dr. Han again next week. He has been to [facility] past. He does not feel need to go now. He is flying to [place] to see his ill brother in the next week or two. He has severe flight anxiety and has panic attacks on flight. He is asking for few valium which he has had to use in the past. Hereally wants to try to get to [place]. Dr. Han concerned about some recent weight loss. He feels he has lost 10# but weights here show fairly stable weights. Patient Active Problem List Diagnosis Date Noted Recurrent major depressive disorder, in partial remission (HCC) 2018 Medical marijuana use 06/15/2018 Chronic pain syndrome 01/09/2018 Dr Han [facility] Failed total knee arthroplasty (HCC) 02/07/2017 Chronic hepatitis C without hepatic coma (HCC) 03/14/2015 Osteoarthritis of shoulder due to rotator cuff injury 06/09/2011 S/P revision of total knee, right 01/19/2011 Replaced inactive diagnosis Essential hypertension, benign 01/08/2011 Narcotic dependency, continuous (HCC) 02/06/2009 duragesic patch therapy stopped 2008 Family history of colon cancer 02/06/2009 Colonoscopy negative 2001 and 2006. History of tobacco use 05/09/2007 Quit 1969. Chronic shoulder pain 05/09/2007 Bilateral, s/p surgery x2 right shoulder last 1994 and x1 on left shoulder late -rotator cuffrepair Current Outpatient Medications Medication Sig Cholecalciferol (VITAMIN D) 1000 UNIT Oral Cap Take 1 Cap by mouth DAILY. cimetidine (TAGAMET) 400 MG Oral Tab Take 400 mg by mouth TWO TIMES DAILY NEEDED (gerd). daily vitamin Oral Tab Take 1 Tab by mouth DAILY. diazepam (VALIUM) 5 MG Oral Tab Take 1-2 Tabs by mouth TWO TIMES DAILY NEEDED (flight anxiety). Max Daily Amount: 20 mg. doxepin (SINEQUAN) 25 MG Oral Cap Take 1-2 Caps by mouth EVERY BEDTIME. OXYcodone-acetaminophen discharge (PERCOCET) 10-325 MG Oral Tab Take 1 Tab by mouth EVERY SIXHOURS NEEDED. Indications: Pain zolpidem (AMBIEN) 10 MG Oral Tab Take 1 Tab by mouth EVERY BEDTIME NEEDED (sleep). Max Daily Amount: 10 mg. No current facility-administered medications for this visit. OBJECTIVE: BP 132/82 (BP Location: Left arm, Patient Position: Sitting) | Pulse 101 | Ht 5' 7" (1.702 m) | Wt 137 lb (62.1 kg) | SpO2 95% | BMI 21.46 kg/m He is alert and in no distress . Chest is clear, no wheezing or rales. Normal symmetric air entry throughout both lung alvarez. Heart RRR. Abdomen soft and nontender. BP Readings from Last 3 Encounters: 03/22/19 132/82 12/19/18 136/82 10/19/18 132/86 Wt Readings from Last 3 Encounters: 03/22/19 137 lb (62.1 kg) 12/19/18 135 lb (61.2 kg) 10/19/18 140 lb (63.5 kg) ASSESSMENT: ICD-9-CM ICD-10-CM 1. Anxiety state 300.00 F41.1 THYROID STIMULATING HORMONE diazepam (VALIUM) 5 MG Oral Tab 2. Alcohol abuse, episodic drinking behavior 305.02 F10.10 REFER TO DRUG & ALCOHOL NURSING HOME AIDE (ED ONLY) 3. Chronic hepatitis C without hepatic coma (HCC) 070.54 B18.2 HEPATITIS C RNA, QUANTITATIVE, PCR CBC WITH DIFFERENTIAL COMPREHENSIVE METABOLIC PANEL Patient Instructions Blood test today Follow up Dr Han Can use valium if needed for upcoming air travel anxiety. Do No drink alcohol Consider going to [facility] [place]. Author: CRISTIN Paul 03/22/2019 15:15 documented in this encounter Plan of Treatment Name Type Priority Associated Diagnoses Date/Time HEPATITIS C RNA, Lab Routine Chronic hepatitis C 03/22/2019 3:08 PM QUANTITATIVE, PCR without hepatic coma EDT (HCC) CBC WITH DIFFERENTIAL Lab Routine Chronic hepatitis C 03/22/2019 3:08 PM without hepatic coma EDT (HCC) COMPREHENSIVE METABOLIC Lab Routine Chronic hepatitis C 03/22/2019 3:08 PM PANEL without hepatic coma EDT (HCC) THYROID STIMULATING Lab Routine Anxiety state 03/22/2019 3:08 PM HORMONE EDT Name Type Priority Associated Diagnoses Order Schedule REFER TO DRUG & ALCOHOL Referral Routine Alcohol abuse, episodic Expected: 03/22/2019, NURSING HOME AIDE (ED drinking behavior Expires: 03/22/2020 ONLY) Health Maintenance Due Date Last Done Comments MEDICARE ANNUAL WELLNESS 1950 VISIT ZOSTER IMMUNIZATION SERIES 2001 (1 of 2) LIPID DISORDER SCREENING 01/13/2010 01/13/2009, 04/12/2005, 09/09/2003, Additional history exists AAA SCREENING/SURVEILLANCE 2016 INFLUENZA VACCINE (#1) 2019 PNEUMOCOCCAL 65+YRS (2 of 2 06/15/2019 06/15/2018 - PPSV23) COLONOSCOPY SCREENING 09/18/2019 09/17/2016, 09/17/2016, 12/11/2009, Additional history exists DEPRESSION SCREENING 10/20/2019 10/19/2018 FALL RISK ASSESSMENT 10/20/2019 10/19/2018, 10/19/2018 HPV IMMUNIZATION SERIES Aged Out No longer eligible based on patient's age to complete this topic MENINGOCOCCAL VACCINE IMM Aged Out No longer eligible based on patient's age to complete this topic documented as of this encounter Goals Goal Patient Goal Associated Recent Patient-Stated? Author Type Problems Progress Blood Pressure Blood Pressure 132/82 No Ruddy, < 150/90 (03/22/2019 CRISTIN Puri 2:32 PM EDT) Note: This is an individualized treatment (blood pressure) goal for Speedy Balderas: Displayed above (on the left) is your goal for blood pressure control. Your most recent blood pressure is also shown above, on the right. You should try to achieve blood pressures that are lower than your goal listed above (on the left). Depression screen (PHQ-9) total score < 5 Depression No Khushi Fox FNP Note: This is an individualized treatment (depression) goal for Speedy Balderas: Displayed above is your goal for a depression screening (PHQ-9) score that would indicate good control of your depression. Keep a regular sleep schedule Lifestyle No Khushi Fox FNP Note: This is an individualized lifestyle goal for Speedy Balderas: Please maintain a regular sleep schedule. This may help with some symptoms of depression. Take all prescribed medications as Self-management No Khushi Fox FNP directed Note: This is an individualized self-management goal for Speedy Balderas: Please take all prescribed medications as directed. 1. Do not skip doses. If you cannot afford your medications, talk with your doctor. 2. Use a pill reminder system such as a pill box if needed. Your pharmacist can help you with this. 3. Contact your Pharmacy 5 days before your medication runs out. If you cannot take your medications for any reasons, talk with your doctor. 4. Please bring all of your medication bottles and inhalers (or a list of all your medications/inhalers) with you to every visit. Potential barriers to meeting all of your care plan goals will continue to be addressed on an ongoing basis. documented as of this encounter Implants Implanted Type Area Occupational Medicine Physician Device Shelf Model / Identifier Expiration Serial / Lot Date Bone Cement, Double 80gm - [id number] Right: DEPUY [id number] / Implanted: Qty: 1 on 09/01/2010 at [facility] / [id number] Tibial Plate Size 5 Nexgen - [id number] Right: [facility] 5980-47- 01 / Implanted: Qty: 1 on 09/01/2010 at [facility] / [id number] Prolong Surface Lps Ef 5/6 10m - [id number] Right: [facility] 5962- 040-10 / Implanted: Qty: 1 on 09/01/2010 at [facility] / [id number] Lps-Flex Option Femoral E Rt - [id number] Right: [facility] 5964-15- 52 / Implanted: Qty: 1 on 09/01/2010 at [facility] / [id number] Tibial Plate Size 5 Nexgen - [id number] Right: [facility] 2026 [id number] / Implanted: Qty: 1 on 05/12/2017 by Yuval Christy MD at [facility] / [id number] Tm Tibial Cone, Medium 31x31 - [id number] Right: [facility] 2020 [id number] / Implanted: Qty: 1 on 05/12/2017 by Yuval Christy MD at [facility] / [id number] Art Surface 10mm Green - [id number] Right: [facility] 08/20/2024 / Implanted: Qty: 1 on 05/12/2017 by Yuval Christy MD at [facility] / [id number] Nexgen Stem 10 X 145mm - [id number] Right: [facility] 10/20/2026 [id number] / Implanted: Qty: 1 on 05/12/2017 by Yuval Christy MD at [facility] / [id number] Bone Cement, Double 80gm - [id number] Right: DEPUY 07/21/2019 [id number] / Implanted: Qty: 1 on 05/12/2017 by Yuval Christy MD at [facility] / [id number] Nexgen Tib Augment 10mm Size 5 - [id number] Right: CLEMENT SMITH 2024 [id number] / Implanted: Qty: 1 on 05/12/2017 by Yuval Christy MD at [facility] / [id number] documented as of this encounter Results Not on filedocumented in this encounter Visit Diagnoses Diagnosis Anxiety state - Primary Anxiety state, unspecified Alcohol abuse, episodic drinking behavior Nondependent alcohol abuse, episodic drinking behavior Chronic hepatitis C without hepatic coma (HCC) documented in this encounter Insurance Payer Benefit Plan / Subscriber ID Effective Dates Phone Address Type Group [place] MEDICARE [facility] xxxxxxxxxxxx 2018-Present [employer] ADVANTAGE MEDICARE BLUE PPO ([phone]) Guarantor Name Account Type Relation to Date of Phone Billing Patient Address Shailesh Balderas Personal/Family 1950 [address] [facility] (Home) [address] [phone] [place], [place] (Work) [address] documented as of this encounter Advance Directives Type Date Recorded Patient Pit Hand Explanation Advance Directives 05/17/2017 11:06 AM LIVING WILL
--- OUTSIDE RECORDS SUMMARY | 2019-04-11 19:30 | XMS REPORT | Continuity of Care Document ---
:1950 External Reference #:[id number] Author Name Benoit Han DO, MPH Address [address] [place] [address], [address] [place] [address] Care Team Providers Name Role Phone Melo Bustillos MD - Internal Care Team Information Police Officer [phone] Medicine Problems Description No Information Available Social History Type Date Description Comments Sex Unknown ETOH Use Rarely consumes alcohol Tobacco Use Start: Unknown End: Unknown Patient is a former smoker Recreational Drug Use Denies Drug Use Smoking Status Reviewed: 03/06/19 Patient is a former smoker Allergies, Adverse [...] Available Vital Signs Date Vital Result Comment 03/06/2019 3:49pm BP Systolic 130 mmHg BP Diastolic 82 mmHg Heart Rate 84 /min Respiratory Rate 20 /min Height 67 inches 5'7" Weight 136.00 lb Pain Level 6 Pain at this time. Pain Level With Medicine 6 on average with meds Pain Level Without Medicine 9 without meds BMI (Body Mass Index) 21.3 kg/m2 02/22/2019 3:37pm BP Systolic 136 mmHg BP Diastolic 86 mmHg Heart Rate 88 /min Respiratory Rate 20 /min Height 67 inches 5'7" Weight 141.00 lb Pain Level 7 Pain at this time. 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 Office Visit 01/23/2019 2:45p Main Office as Benoit Han G89.29 Other chronic Of 06/23/13 DO, MPH pain M54.2 Cervicalgia Z79.891 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 Office Visit 12/26/2018 3:00p Main Office as Benoit Han G89.29 Other chronic Of 06/23/13 DO, MPH pain M54.2 Cervicalgia Z79.891 senior care (current) use of opiate analgesic Office Visit 12/22/2018 1:45p Main Office as Benoit Han G89.29 Other chronic Of 06/23/13 DO, MPH pain M54.2 Cervicalgia M54.5 Low back pain M54.6 Pain in thoracic spine Office Visit 11/22/2018 11:15a Main Office as Benoit Han G89.29 Other chronic Of 06/23/13 DO, MPH pain M54.2 Cervicalgia M54.5 Low back pain M54.6 Pain in thoracic spine Z79.891 senior care (current) use of opiate analgesic Office Visit 10/24/2018 11:00a Main Office as Benoit Han G89.29 Other chronic Of 06/23/13 DO, MPH pain M54.2 Cervicalgia M54.6 Pain in thoracic spine M54.5 Low back pain Z79.891 senior care (current) use of opiate analgesic Office Visit 09/21/2018 11:30a Main Office as Benoit Han G89.29 Other chronic Of 06/23/13 DO, MPH pain M54.2 Cervicalgia M99.01 Segmental and somatic dysfunction of cervical region M54.6 Pain in thoracic spine M99.02 Segmental and somatic dysfunction of thoracic region M54.5 Low back pain M99.03 Segmental and somatic dysfunction of lumbar region M25.561 Pain in right knee Z79.891 senior care (current) use of opiate analgesic Assessments Date Code Description Provider 03/06/2019 G89.29 Other chronic pain Han, Benoit, DO, MPH 03/06/2019 M54.5 Low back pain Han, Benoit, DO, MPH 03/06/2019 M54.2 Cervicalgia Han, Benoit, DO, MPH 03/06/2019 M25.561 Pain in right knee Han, Benoit, DO, MPH 03/06/2019 Z79.891 senior care (current) use of opiate analgesic Han, Benoit , DO, MPH 02/22/2019 G89.29 Other chronic pain Han, Benoit, DO, MPH 02/22/2019 M54.2 Cervicalgia Han, Benoit, DO, MPH 02/22/2019 M54.5 Low back pain Han, Benoit, DO, MPH 02/22/2019 Z71.89 Other specified counseling Han, Benoit, DO, MPH 02/22/2019 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.891 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 Han, Benoit , DO, MPH 01/23/2019 G89.29 Other chronic pain Han, Benoit, DO, MPH 01/23/2019 M54.2 Cervicalgia Han, Benoit, DO, MPH 01/23/2019 Z79.891 senior care (current) use of opiate analgesic Han, Benoit , DO, MPH 12/26/2018 G89.29 Other chronic pain Han, Benoit, DO, MPH 12/26/2018 M54.2 Cervicalgia Han, Benoit, DO, MPH 12/26/2018 Z79.891 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01 Segmental and somatic dysfunction of Han, Benoit, DO, MPH cervical region 09/21/2018 M54.6 Pain in thoracic spine Han, Benoit, DO, MPH 09/21/2018 M99.02 Segmental and somatic dysfunction of Han, Benoit, DO, MPH thoracic region 09/21/2018 M54.5 Low back pain Han, Benoit, DO, MPH 09/21/2018 M99.03 Segmental and somatic dysfunction of lumbar Han, Benoit, DO, MPH region 09/21/2018 M25.561 Pain in right knee Han, Benoit, DO, MPH 09/21/2018 Z79.891 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 Continue current medical pain management.Z79.891 senior care (current) use of opiate analgesicNew Labs:Urine Drug Screen, Ordered: 03/06/19Comments: Urine drug screen sample taken today to monitor opiate use and to monitor use of illicit substances.Will discuss results at next appointment.The following tests were ordered:6 AM, AMPH, ROSALBA, YUMI, BUP, CARIS, COCM, COT, ETG, [...] while maintaining satisfactory side effect profile andminimizing retirement end-organ damage. Importance of regular nutrition throughout the day discussed.Activity as toleratedContinue with PCP Functional Status Description No Information Available Mental Status Description No Information Available Referrals Description No Information Available
== END 2019-04-11 19:18 | disposition expired ==
LOC: ED 19:06
DX: I46.9 Cardiac arrest, cause unspecified (principal); J96.90 Respiratory failure, unspecified, unspecified whether with hypoxia or hypercapnia; Z88.6 Allergy status to analgesic agent
CPT/HCPCS: 99285; A9270-GY; J0171